=== PATIENT | male | born 1965 | race Caucasian/White ===

== ENCOUNTER 2020-05-04 14:51 | Inpatient (IN) | payer BC ==
[~2020-05-04] VITALS: Ht 175.3 cm; Wt 85.5 kg
[2020-05-04] MEDS ORDERED: ASPIRIN 325 MG TABLET PO ONE (15:15)
--- NOTE | 2020-05-04 15:18 | PHYS DOC ---
Past Medical History Past Medical History: High Cholesterol, Hypertension Past Surgical History: Other Additional Past Surgical Histo: hernia Smoking Status: Never Smoker Alcohol Use: Occasionally General Adult EDM: Chief Complaint: CHEST PAIN HPI: HPI: Patient is a 54 year old male who presents with 2 days of intermittent but more episodes than usual of increased shortness of air, chest tightness and sharp pains that go into the left chest. They radiate to the back. He states when he is up and moving it makes it worse. He states he will get lightheaded at the same time. He states that he has a little bit of a cough and some sinus drainage also. States he works at the [employer]. He states that his mom and dad have both had heart disease, heart attacks and mom has A. fib. Patient has a history of hypercholesteremia and hypertension. He has not taken any aspirin. He states that he just had a physical and he supposed to go on for a stress test but it is not scheduled yet. States nothing makes his pain better. He states at times he will just be sitting or he be standing walking around at work and will begin to get some nausea, increase short of air, chest tightness and sharp pains through to the back and lightheaded and then feels as if his heart skips a beat. Review of Systems: Review of Systems: Constitutional: Denies fever or chills. [] Eyes: Denies change in visual acuity. [] HENT: Denies nasal congestion or sore throat. [] Respiratory: + cough or +shortness of breath. [] Cardiovascular: + chest pain or denies edema. + Heart skips a beat [] GI: Denies abdominal pain. + nausea, denies vomiting, bloody stools or diarrhea. [] : Denies dysuria. [] Musculoskeletal: + Mid back pain or denies joint pain. [] Integument: Denies rash. [] Neurologic: + Lightheadedness. Denies headache, focal weakness or sensory changes. [] Endocrine: Denies polyuria or polydipsia. [] Lymphatic: Denies swollen glands. [] Psychiatric: Denies depression or anxiety. [] Heart Score: HEART Score for Chest Pain: HEART Score for Chest Pain Response (Comments) Value History Moderately Suspicious 1 ECG Nonspecific Repolarizatio 1 Age >45 - < 65 1 Risk Factors >3 Risk Factors or Hx CAD 2 Troponin < Normal Limit 0 Total 5 Risk Factors: Risk Factors: DM, Current or recent (<one month) smoker, HTN, HLP, family history of CAD, obesity. Risk Scores: Score 0 - 3: 2.5% MACE over next 6 weeks - Discharge Home Score 4 - 6: 20.3% MACE over next 6 weeks - Admit for Clinical Observation Score 7 - 10: 72.7% MACE over next 6 weeks - Early Invasive Strategies Physical Exam: PE: Constitutional: Well developed, well nourished, no acute distress, non-toxic appearance. [] HENT: Normocephalic, atraumatic, bilateral external ears normal, oropharynx moist, no oral exudates, nose normal. [] Eyes: PERRLA, EOMI, conjunctiva normal, no discharge. [] Neck: Normal range of motion, no tenderness, supple, no stridor. [] Cardiovascular:Heart rate regular rhythm, no murmur [] Lungs & Thorax: Bilateral breath sounds clear to auscultation [] Abdomen: Bowel sounds normal, soft, no tenderness, no masses, no pulsatile masses. [] Skin: Warm, dry, no erythema, no rash. [] Back: No tenderness, no CVA tenderness. [] Extremities: No tenderness, no cyanosis, no clubbing, ROM intact, no edema. [] Neurologic: Alert and oriented X 3, normal motor function, normal sensory function, no focal deficits noted. [] Psychologic: Affect normal, judgement normal, mood normal. Normal physical exam [] Current Patient Data: Vital Signs: Vital Signs Date Time Temp Pulse Resp B/P (MAP) Pulse Ox O2 Delivery O2 Flow Rate FiO2 05/04/20 14:55 98.2 97 16 163/97 (119) 100 Room Air 98.2 EKG: EK and read by Dr Crespo as Sinus Rhythm and no STEMI Radiology/Procedures: Radiology/Procedures: [] Impression: [facility] [address] [place] [address] IMAGING REPORT Signed PATIENT: SARANYA MELO ACCOUNT: [id number] : 1965 LOCATION: ER AGE: 54 SEX: M EXAM STATUS: PRE ER ORD. PHYSICIAN: KATHY PAZ APRN REASON: light headedness x few days PROCEDURE: CT HEAD WO CONTRAST Examination: CT HEAD WO CONTRAST History: Reason: light headedness x few days Comparison/Correlation: None Findings: Axial images of the head were obtained without contrast. Ventricles are normal size. No intracranial hemorrhage, midline shift, or mass effect. Atrophy is present. Bony structures are unremarkable. Left sphenoid sinus mucous retention cyst. Impression: No suspicious process. PQRS Compliance Statement: One or more of the following individualized dose reduction techniques were utilized for this examination: 1. Automated exposure control 2. Adjustment of the mA and/or kV according to patient size 3. Use of iterative reconstruction technique Electronically signed by: Sunil Somers MD (05/04/2020 3:32 PM) [id number] DICTATED and SIGNED BY: SUNIL SOMERS MD DATE: 05/04/201531 [facility] [address] [place] [address] IMAGING REPORT Signed PATIENT: SARANYA MELO ACCOUNT: [id number] : 1965 LOCATION: ER AGE: 54 SEX: M EXAM STATUS: PRE ER ORD. PHYSICIAN: KATHY PAZ APRN REASON: chest pain, soa PROCEDURE: PORTABLE CHEST 1V Examination: PORTABLE CHEST 1V History: Reason: chest pain, soa / Spl. Instructions: / History: Comparison/Correlation: None Findings: Portable Chest X-ray Exam was obtained with the patient upright. Heart size is normal. Pulmonary vasculature is normal. No infiltrate or effusion. No pneumothorax. Bony structures are unremarkable. Impression: No active disease. Electronically signed by: Sunil Somers MD (05/04/2020 3:35 PM) [id number] DICTATED and SIGNED BY: SUNIL SOMERS MD DATE: 05/04/201534 Course & Med Decision Making: Course & Med Decision Making Pertinent Labs and Imaging studies reviewed. (See chart for details) COVID-19 CRITERIA: The patient was evaluated during the global COVID-19 pandemic, and that diagnosis was suspected/considered upon their initial presentation. Their evaluation, treatment and testing was consistent with current guidelines for patients who present with complaints or symptoms that may be related to COVID-19. See HPI. Alert and oriented x4. Ambulatory steady gait. No extremity edema. Lungs are clear to auscultation all lobes. Speaks in full sentences. Skin pink warm and dry. Patient denies smoking, vomiting, abdominal pain, headache, vision changes, numbness or tingling, focal weakness. Blood work is unremarkable except for his sodium is 127. I have ordered a liter of fluids. The nitroglycerin he had 1 nitro and it took his chest pain away. Patient is willing to cover test but states he does not want a Covid test if they can do a stress test on him and then do it again tomorrow as he states that " I want the fast Covid test. Had a friend that went to [place] and they got the fast Covid test." Patient is told that we only do the rapid Covid test before a procedure at this facility. He also asked me if " can I get the stress test d one tomorrow and if I can I am going to leave." He states that his doctor had put in an order to have a stress test done at [facility] months ago but he never did it because it would take 4 hours and he does not " have time for that and does not deal with [facility]". Patient is educated that if he left he would have to sign out AGAINST MEDICAL ADVICE because our advice is for him to be admitted to be observed overnight especially since he is high risk and runs the risk of or stability if he left. Patient " laughs" and states " I am not going to , these are the same pains I have been getting for some time." Patient states that he has things to do like "mow the grass." Patient states that he can " leave and come back tomorrow". Once again told him he would have to sign out AGAINST MEDICAL ADVICE. Also told the patient that he would have to go back through the ER visit again and the patient states " that is okay I have insurance, I am not paying for it." I have called Dr. Elaine for admission. [] Ladonna Disclaimer: Ladonna Disclaimer: This electronic medical record was generated, in whole or in part, using a voice recognition dictation system. COVID-19 Patient Risks: Age 65 or older: No Sign of co-morbidity: Yes Exp to person + for COVID: No Exp to PUI: No Travel from affected area: No Lower respiratory symptoms: Yes Fever: No Other: Yes (NASAL CONGESTION, SOA) PPE Use: Full PPE with N95 mask or PAPR: Yes Departure Departure Impression: Primary Impression: Chest pain Qualified Codes: R07.9 - Chest pain, unspecified Disposition: 09 ADMITTED INPT THIS HOSP Admitting Physician: JALEN Condition: STABLE KATHY PAZ CUSHION ASSEMBLER May 04, 2020 15:18
[2020-05-04 15:24] LABS: BASO % 1 % (0-3); EOS # 0.1 x10^3/uL (0.0-0.7); EOS % 1 % (0-3); HEMATOCRIT 41.7 % (39.0-53.0); HEMOGLOBIN 14.9 g/dL (13.0-17.5); LYMPH % 29 % (24-48); MEAN CORPUSCULAR HEMOGLOBIN 34 pg (25-35); MEAN CORPUSCULAR HGB CONC 36 g/dL (31-37); MEAN CORPUSCULAR VOLUME 95 fL (79-100); MONO # 0.9 x10^3/uL (0.0-1.1); MONO % 14 % (0-9); NEUT # 3.8 x10^3/uL (1.8-7.7); NEUT % 55 % (31-73); PLATELET COUNT 157 x10^3/uL (140-400); RED CELL DISTRIBUTION WIDTH 13.4 % (11.5-14.5); WHITE BLOOD COUNT 6.8 x10^3/uL (4.0-11.0)
[2020-05-04] MEDS ORDERED: NITROGLYCERIN SUBLINGUAL 0.4 MG BOTTLE OF 25. SL PRN (15:30)
[2020-05-04 15:31] LABS: PROTHROMBIN TIME PATIENT 12.7 SEC (11.7-14.0)
--- NOTE | 2020-05-04 15:35 | RAD ---
Examination: CT HEAD WO CONTRAST History: Reason: light headedness x few days Comparison/Correlation: None Findings: Axial images of the head were obtained without contrast. Ventricles are normal size. No intracranial hemorrhage, midline shift, or mass effect. Atrophy is present. Bony structures are unremarkable. Left sphenoid sinus mucous retention cyst. Impression: No suspicious process. PQRS Compliance Statement: One or more of the following individualized dose reduction techniques were utilized for this examination: 1. Automated exposure control 2. Adjustment of the mA and/or kV according to patient size 3. Use of iterative reconstruction technique Electronically signed by: Sunil Gillis MD (05/04/2020 3:32 PM) [id number]
[2020-05-04 15:39] LABS: CALCIUM 8.8 mg/dL (8.5-10.1); CREATININE 0.7 mg/dL (0.7-1.3); POTASSIUM 4.5 mmol/L (3.5-5.1)
--- NOTE | 2020-05-04 15:39 | RAD ---
Examination: PORTABLE CHEST 1V History: Reason: chest pain, soa / Spl. Instructions: / History: Comparison/Correlation: None Findings: Portable Chest X-ray Exam was obtained with the patient upright. Heart size is normal. Pulmonary vasculature is normal. No infiltrate or effusion. No pneumothorax. Bony structures are unremarkable. Impression: No active disease. Electronically signed by: Sunil Gillis MD (05/04/2020 3:35 PM) [id number]
[2020-05-04 15:44] LABS: ALBUMIN 4.3 g/dL (3.4-5.0); ALBUMIN/GLOBULIN RATIO 1.5 (1.0-1.7); TOTAL BILIRUBIN 0.6 mg/dL (0.2-1.0); TOTAL PROTEIN 7.2 g/dL (6.4-8.2)
[2020-05-04] MEDS ORDERED: IV NORMAL SALINE 1000ML BAG 1,000 ML IV ONE (15:45)
[2020-05-04 16:11] LABS: BILIRUBIN,URINE NEGATIVE (NEG); CLARITY,URINE CLEAR; NITRITE,URINE NEGATIVE (NEG); PROTEIN,URINE NEGATIVE (NEG-TRACE); UROBILINOGEN,URINE 0.2 mg/dL (0.2 mg/dL)
[2020-05-04 16:16] LABS: BARBITURATES NEG (NEG); BENZODIAZEPINES NEG (NEG); CANNABINOIDS NEG (NEG); COCAINE NEG (NEG); METHADONE NEG (NEG); OPIATES NEG (NEG); PHENCYCLIDINE NEG (NEG)
[2020-05-04 16:19] LABS: COLOR,URINE STRAW
[2020-05-04 16:21] LABS: BACTERIA,URINE 0 /HPF (0-FEW); RBC,URINE 0 /HPF (0-2); WBC,URINE 0 /HPF (0-4)
[2020-05-04 16:28] LABS: AMPHETAMINE/METHAMPHETAMINE NEG (NEG)
[2020-05-04 16:53] LABS: CHOLESTEROL/HDL RATIO 3.3
[2020-05-04] MEDS ORDERED: MAGNESIUM HYDROXIDE 2,400 MG/30 ML ORAL.SUSP. PO PRN (17:00)
[2020-05-04] MEDS ORDERED: IBUPROFEN 400 MG TABLET. PO PRN (17:00)
[2020-05-04] MEDS ORDERED: traMADol 50 MG TABLET PO PRN (17:00)
[2020-05-04] MEDS ORDERED: ONDANSETRON PF 4 MG/2 ML VIAL. IVP PRN (17:00)
[2020-05-04] MEDS ORDERED: ZOLPIDEM 5 MG TABLET. PO PRN (17:00)
[2020-05-04] MEDS ORDERED: ACETAMINOPHEN 325 MG TABLET. PO PRN (17:00)
[2020-05-04] MEDS ORDERED: MAG HYDROX/ALUMINUM HYD/SIMETH 30 ML ORAL.SUSP PO PRN (17:00)
[2020-05-04] MEDS ORDERED: hydrOXYzine 25 MG TABLET PO PRN (17:00)
[2020-05-04] MEDS ORDERED: MORPHINE SULFATE 2 MG/ML VIAL. IV PRN (17:00)
--- NOTE | 2020-05-04 17:11 | PDOC1 ---
History and Physical Date of Admission Date of Admission DATE: 05/04/20 TIME: 17:01 Identification/Chief Complaint Chief Complaint Chest pain Source Source: Patient History of Present Illness History of Present Illness Patient is a 51-year-old male with past medical history hypertension, hyperlipidemia, presents to the ED with complaint of intermittent left-sided chest pain for the past 2 days. Patient notes a longstanding history of intermittent chest pain over the past 2-3 years. He reports left-sided chest tightness. His symptoms have worsened over the past 2 days to include diaphoresis. Patient states he has previously received a stress test with normal results. He has a strong family history of coronary artery disease, father with CABG and mother with A. fib. Initial troponin <0.017 and chest x- ray unremarkable. Will admit patient for further evaluation with stress echo in the morning and cardiology consult. Past Medical History Past Medical History Hypertension, hyperlipidemia Past Surgical History Past Surgical History Hiatal hernia repair Family History Family History CABG, CAD, A. fib Social History Smoke: No ALCOHOL: none Drugs: None Current Problem List Problem List Problems Medical Problems: (1) Chest pain Status: Acute Current Medications Current Medications Current Medications Aspirin (Shabbir Aspirin) 325 mg 1X ONCE PO Last administered on 05/04/20at 15:15; Start 05/04/20 at 15:15; Stop 05/04/20 at 15:16; Status DC Nitroglycerin (Nitrostat) 0.4 mg PRN Q5MIN PRN SL CHEST PAIN Last administered on 05/04/20at 15:36; Start 05/04/20 at 15:30 Sodium Chloride 1,000 ml @ 1,000 mls/hr 1X ONCE IV Last administered on 05/04/20at 15:59; Start 05/04/20 at 15:45; Stop 05/04/20 at 16:44; Status DC Allergies Allergies: Coded Allergies: No Known Drug Allergies (Unverified , 05/04/20) ROS Review of System GENERAL: Diaphoresis. No history of weight change, weakness or fevers. SKIN: No bruising, hair changes or rashes. EYES: No blurred, double or loss of vision. NOSE AND THROAT: No history of nosebleeds, hoarseness or sore throat. HEART: Chest pain. Denies palpitations. LUNGS: Denies cough, hemoptysis, wheezing or shortness of breath. GASTROINTESTINAL: Denies nausea, vomiting, abdominal pain. GENITOURINARY: Denies dysuria, frequency, urgency, hematuria. NEUROLOGIC: Denies history of numbness, tingling, tremor or weakness. PSYCHIATRIC: Denies anxiety, denies depression. ENDOCRINE: No history of heat or cold intolerance, polyuria or polydipsia. EXTREMITIES: Denies muscle weakness, joint pain, pain on walking or stiffness. Physical Exam Physical Exam General: Alert, Oriented X3, Cooperative, No acute distress HEENT: PERRLA, EOMI Lungs: Clear to auscultation, Normal air movement Heart: RRR, no murmurs Cardiovascular: S1, S2 Abdomen: Normal bowel sounds, Soft, No tenderness Extremities: No clubbing, No cyanosis Skin: No rashes, No significant lesion Neuro: Normal speech, Normal tone, Sensation intact Psych/Mental Status: Mental status NL, Mood NL Vitals Vitals Vital Signs Date Time Temp Pulse Resp B/P (MAP) Pulse Ox O2 Delivery O2 Flow Rate FiO2 05/04/20 16:05 98 15 129/90 (103) 99 Room Air 05/04/20 14:55 98.2 98.2 Labs Labs Laboratory Tests Test 05/04/20 15:14 05/04/20 15:45 White Blood Count 6.8 x10^3/uL (4.0-11.0) Red Blood Count 4.40 x10^6/uL (4.30-5.70) Hemoglobin 14.9 g/dL (13.0-17.5) Hematocrit 41.7 % (39.0-53.0) Mean Corpuscular Volume 95 fL (79-100) Mean Corpuscular Hemoglobin 34 pg (25-35) Mean Corpuscular Hemoglobin Concent 36 g/dL (31-37) Red Cell Distribution Width 13.4 % (11.5-14.5) Platelet Count 157 x10^3/uL (140-400) Neutrophils (%) (Auto) 55 % (31-73) Lymphocytes (%) (Auto) 29 % (24-48) Monocytes (%) (Auto) 14 % (0-9) Eosinophils (%) (Auto) 1 % (0-3) Basophils (%) (Auto) 1 % (0-3) Neutrophils # (Auto) 3.8 x10^3/uL (1.8-7.7) Lymphocytes # (Auto) 2.0 x10^3/uL (1.0-4.8) Monocytes # (Auto) 0.9 x10^3/uL (0.0-1.1) Eosinophils # (Auto) 0.1 x10^3/uL (0.0-0.7) Basophils # (Auto) 0.0 x10^3/uL (0.0-0.2) Prothrombin Time 12.7 SEC (11.7-14.0) Prothromb Time International Ratio 1.0 (0.8-1.1) D-Dimer (Cris) < 0.27 ug/mlFEU Sodium Level 128 mmol/L (136-145) Potassium Level 4.5 mmol/L (3.5-5.1) Chloride Level 92 mmol/L (98-107) Carbon Dioxide Level 30 mmol/L (21-32) Anion Gap 6 (6-14) Blood Urea Nitrogen 7 mg/dL (8-26) Creatinine 0.7 mg/dL (0.7-1.3) Estimated GFR (Cockcroft-Gault) 118.0 BUN/Creatinine Ratio 10 (6-20) Glucose Level 103 mg/dL (70-99) Calcium Level 8.8 mg/dL (8.5-10.1) Total Bilirubin 0.6 mg/dL (0.2-1.0) Aspartate Amino Transf (AST/SGOT) 41 U/L (15-37) Alanine Aminotransferase (ALT/SGPT) 61 U/L (16-63) Alkaline Phosphatase 57 U/L (46-116) Troponin I Quantitative < 0.017 ng/mL (0.000-0.055) [id number]-[id number]-Type Natriuretic Peptide 77 pg/mL (0-124) Total Protein 7.2 g/dL (6.4-8.2) Albumin 4.3 g/dL (3.4-5.0) Albumin/Globulin Ratio 1.5 (1.0-1.7) Triglycerides Level 88 mg/dL (0-150) Cholesterol Level 241 mg/dL (0-200) LDL Cholesterol, Calculated 151 mg/dL (0-100) VLDL Cholesterol, Calculated 18 mg/dL (0-40) Non-HDL Cholesterol Calculated 169 mg/dL (0-129) HDL Cholesterol 72 mg/dL (40-60) Cholesterol/HDL Ratio 3.3 Lipase 231 U/L (73-393) Urine Collection Type Unknown Urine Color Straw Urine Clarity Clear Urine pH 6.0 (<5.0-8.0) Urine Specific Portis <=1.005 (1.000-1.030) Urine Protein Negative mg/dL (NEG-TRACE) Urine Glucose (UA) Negative mg/dL (NEG) Urine Ketones (Stick) Negative mg/dL (NEG) Urine Blood Negative (NEG) Urine Nitrite Negative (NEG) Urine Bilirubin Negative (NEG) Urine Urobilinogen Dipstick 0.2 mg/dL (0.2 mg/dL) Urine Leukocyte Esterase Negative (NEG) Urine RBC 0 /HPF (0-2) Urine WBC 0 /HPF (0-4) Urine Squamous Epithelial Cells None /LPF Urine Bacteria 0 /HPF (0-FEW) Urine Opiates Screen Neg (NEG) Urine Methadone Screen Neg (NEG) Urine Barbiturates Neg (NEG) Urine Phencyclidine Screen Neg (NEG) Urine Amphetamine/Methamphetamine Neg (NEG) Urine Benzodiazepines Screen Neg (NEG) Urine Cocaine Screen Neg (NEG) Urine Cannabinoids Screen Neg (NEG) Urine Ethyl Alcohol Pos (NEG) Laboratory Tests Test 05/04/20 15:14 05/04/20 15:45 White Blood Count 6.8 x10^3/uL (4.0-11.0) Red Blood Count 4.40 x10^6/uL (4.30-5.70) Hemoglobin 14.9 g/dL (13.0-17.5) Hematocrit 41.7 % (39.0-53.0) Mean Corpuscular Volume 95 fL (79-100) Mean Corpuscular Hemoglobin 34 pg (25-35) Mean Corpuscular Hemoglobin Concent 36 g/dL (31-37) Red Cell Distribution Width 13.4 % (11.5-14.5) Platelet Count 157 x10^3/uL (140-400) Neutrophils (%) (Auto) 55 % (31-73) Lymphocytes (%) (Auto) 29 % (24-48) Monocytes (%) (Auto) 14 % (0-9) Eosinophils (%) (Auto) 1 % (0-3) Basophils (%) (Auto) 1 % (0-3) Neutrophils # (Auto) 3.8 x10^3/uL (1.8-7.7) Lymphocytes # (Auto) 2.0 x10^3/uL (1.0-4.8) Monocytes # (Auto) 0.9 x10^3/uL (0.0-1.1) Eosinophils # (Auto) 0.1 x10^3/uL (0.0-0.7) Basophils # (Auto) 0.0 x10^3/uL (0.0-0.2) Prothrombin Time 12.7 SEC (11.7-14.0) Prothromb Time International Ratio 1.0 (0.8-1.1) D-Dimer (Cris) < 0.27 ug/mlFEU Sodium Level 128 mmol/L (136-145) Potassium Level 4.5 mmol/L (3.5-5.1) Chloride Level 92 mmol/L (98-107) Carbon Dioxide Level 30 mmol/L (21-32) Anion Gap 6 (6-14) Blood Urea Nitrogen 7 mg/dL (8-26) Creatinine 0.7 mg/dL (0.7-1.3) Estimated GFR (Cockcroft-Gault) 118.0 BUN/Creatinine Ratio 10 (6-20) Glucose Level 103 mg/dL (70-99) Calcium Level 8.8 mg/dL (8.5-10.1) Total Bilirubin 0.6 mg/dL (0.2-1.0) Aspartate Amino Transf (AST/SGOT) 41 U/L (15-37) Alanine Aminotransferase (ALT/SGPT) 61 U/L (16-63) Alkaline Phosphatase 57 U/L (46-116) Troponin I Quantitative < 0.017 ng/mL (0.000-0.055) KI-[id number]-G-Type Natriuretic Peptide 77 pg/mL (0-124) Total Protein 7.2 g/dL (6.4-8.2) Albumin 4.3 g/dL (3.4-5.0) Albumin/Globulin Ratio 1.5 (1.0-1.7) Triglycerides Level 88 mg/dL (0-150) Cholesterol Level 241 mg/dL (0-200) LDL Cholesterol, Calculated 151 mg/dL (0-100) VLDL Cholesterol, Calculated 18 mg/dL (0-40) Non-HDL Cholesterol Calculated 169 mg/dL (0-129) HDL Cholesterol 72 mg/dL (40-60) Cholesterol/HDL Ratio 3.3 Lipase 231 U/L (73-393) Urine Collection Type Unknown Urine Color Straw Urine Clarity Clear Urine pH 6.0 (<5.0-8.0) Urine Specific Portis <=1.005 (1.000-1.030) Urine Protein Negative mg/dL (NEG-TRACE) Urine Glucose (UA) Negative mg/dL (NEG) Urine Ketones (Stick) Negative mg/dL (NEG) Urine Blood Negative (NEG) Urine Nitrite Negative (NEG) Urine Bilirubin Negative (NEG) Urine Urobilinogen Dipstick 0.2 mg/dL (0.2 mg/dL) Urine Leukocyte Esterase Negative (NEG) Urine RBC 0 /HPF (0-2) Urine WBC 0 /HPF (0-4) Urine Squamous Epithelial Cells None /LPF Urine Bacteria 0 /HPF (0-FEW) Urine Opiates Screen Neg (NEG) Urine Methadone Screen Neg (NEG) Urine Barbiturates Neg (NEG) Urine Phencyclidine Screen Neg (NEG) Urine Amphetamine/Methamphetamine Neg (NEG) Urine Benzodiazepines Screen Neg (NEG) Urine Cocaine Screen Neg (NEG) Urine Cannabinoids Screen Neg (NEG) Urine Ethyl Alcohol Pos (NEG) Images Images Examination: PORTABLE CHEST 1V History: Reason: chest pain, soa / Spl. Instructions: / History: Comparison/Correlation: None Findings: Portable Chest X-ray Exam was obtained with the patient upright. Heart size is normal. Pulmonary vasculature is normal. No infiltrate or effusion. No pneumothorax. Bony structures are unremarkable. Impression: No active disease. VTE Prophylaxis Ordered VTE Prophylaxis Devices: Yes VTE Pharmacological Prophylaxi: No Assessment/Plan Assessment/Plan Unstable angina Hyponatremia Hypertension Hyperlipidemia Plan: Initial troponin <0.017, will obtain repeat troponins Heart pathway score 4, 12-65% chance of 30-day major adverse cardiac event Consults cardiology We will obtain stress echo in the morning Rapid Covid pending for stress test Lipid panel pending We will reconcile home medications FEN - Cardiac diet PPX - SCDs FULL CODE Dispo - observation for above Justifications for Admission Other Justification Unstable angina, hyponatremia JEY AREVALO MD May 04, 2020 17:11
[2020-05-04 19:05] VITALS: BP 121/85
[2020-05-04] MEDS ORDERED: LORA-434 PO (20:42)
[2020-05-04] MEDS ORDERED: FAMO10TA26 PO (20:42)
[2020-05-04] MEDS ORDERED: METO50TA4 PO (20:42)
[2020-05-04] MEDS ORDERED: LISI-334 PO (20:42)
[2020-05-04] MEDS ORDERED: FAMOTIDINE 20 MG TABLET. PO SCH (21:00)
[2020-05-04] MEDS: METOPROLOL SUCC 24HR ER 50 MG TAB.ER.24H. PO SCH (21:10)
[2020-05-04 22:59] VITALS: BP 117/73
[2020-05-05 02:58] VITALS: BP 114/67
[2020-05-05 06:04] LABS: CALCIUM 8.6 mg/dL (8.5-10.1); CREATININE 0.7 mg/dL (0.7-1.3); POTASSIUM 4.3 mmol/L (3.5-5.1)
[2020-05-05 07:00] VITALS: BP_SYST 114; BP_SYST 131; BP_DIAS 67; BP_DIAS 82
[2020-05-05] MEDS ORDERED: LISINOPRIL 20 MG TABLET PO SCH (09:00)
--- NOTE | 2020-05-05 10:05 | PDOC2 ---
SANDRANICOLE BERMUDEZ HORTENCIA 05/05/20 1005: CARDIAC CONSULT DATE OF CONSULT Date of Consult DATE: 05/05/20 TIME: 10:01 REASON FOR CONSULT Reason for Consult: Chest pain REFERRING PHYSICIAN Referring Physician: Neema Brown APRN SOURCE Source: Chart review, Patient HISTORY OF PRESENT ILLNESS HISTORY OF PRESENT ILLNESS This is a 54 yo male who presented secondary to chest pain. Patient reports experiencing intermittent chest pain for the last several months. Has been increasing in the last 2-3 days. Located in the central to right chest. Describes as aching. Radiated through to the back. Sometimes, feels lightheaded with the pain and feels like his heart is skipping a beat although thinks this could be anxiety related. Denies any associated diaphoresis or shortness of breath. Occasionally feels nauseated. Reports having heart cath in 2000 that was clean. No recent cardiac workup. PAST MEDICAL HISTORY Cardiovascular: HTN, Hyperlipidemia GI: GERD Musculoskeletal: Osteoarthritis PAST SURGICAL HISTORY Past Surgical History: Tonsillectomy FAMILY HISTORY Family History: Coronary Artery Disease (mother and father ), Heart Disease, Hypertension, Other (AFIB ) SOCIAL HISTORY Smoke: No ALCOHOL: occassional Drugs: None Lives: with Family CURRENT MEDICATIONS CURRENT MEDICATIONS Current Medications Medications (Trade) Dose Ordered Sig/Carly Route PRN Reason Start Time Stop Time Status Last Admin Dose Admin Aspirin (Shabbir Aspirin) 325 mg 1X ONCE PO 05/04/20 15:15 05/04/20 15:16 DC 05/04/20 15:15 Nitroglycerin (Nitrostat) 0.4 mg PRN Q5MIN PRN SL CHEST PAIN 05/04/20 15:30 05/04/20 15:36 Sodium Chloride 1,000 ml @ 1,000 mls/hr 1X ONCE IV 05/04/20 15:45 05/04/20 16:44 DC 05/04/20 15:59 Lorazepam (Ativan) 1 mg HS PO 05/04/20 21:00 05/04/20 21:09 Metoprolol Succinate (Toprol Xl) 50 mg BID PO 05/04/20 21:00 05/04/20 21:10 Famotidine (Pepcid) 20 mg QHS PO 05/04/20 21:00 05/04/20 21:09 ALLERGIES ALLERGIES: Coded Allergies: No Known Drug Allergies (Unverified , 05/04/20) ROS Review of System 14 point ROS conducted with pertinent positives noted above in HPI PHYSICAL EXAM General: Alert, Oriented X3, Cooperative, No acute distress HEENT: Atraumatic, Mucous membr. moist/pink Lungs: Clear to auscultation Heart: Regular rate Abdomen: Soft, No tenderness Extremities: No edema, Normal pulses Skin: No breakdown Neuro: Normal speech, Sensation intact Psych/Mental Status: Mood NL MUSCULOSKELETAL: No joint tenderness, Osteoarthritic changes both hands VITALS/I&O VITALS/I&O: Vital Signs Date Time Temp Pulse Resp B/P (MAP) Pulse Ox O2 Delivery O2 Flow Rate FiO2 05/05/20 07:00 97.6 79 19 131/82 (98) 98 Room Air 97.6 I & O 05/04/20 05/04/20 05/05/20 15:00 23:00 07:00 Intake Total 400 ml 0 ml Balance 400 ml 0 ml LABS Lab: Laboratory Tests Test 05/04/20 15:14 05/04/20 15:45 05/04/20 17:05 05/04/20 19:00 White Blood Count 6.8 x10^3/uL (4.0-11.0) Red Blood Count 4.40 x10^6/uL (4.30-5.70) Hemoglobin 14.9 g/dL (13.0-17.5) Hematocrit 41.7 % (39.0-53.0) Mean Corpuscular Volume 95 fL (79-100) Mean Corpuscular Hemoglobin 34 pg (25-35) Mean Corpuscular Hemoglobin Concent 36 g/dL (31-37) Red Cell Distribution Width 13.4 % (11.5-14.5) Platelet Count 157 x10^3/uL (140-400) Neutrophils (%) (Auto) 55 % (31-73) Lymphocytes (%) (Auto) 29 % (24-48) Monocytes (%) (Auto) 14 % (0-9) H Eosinophils (%) (Auto) 1 % (0-3) Basophils (%) (Auto) 1 % (0-3) Neutrophils # (Auto) 3.8 x10^3/uL (1.8-7.7) Lymphocytes # (Auto) 2.0 x10^3/uL (1.0-4.8) Monocytes # (Auto) 0.9 x10^3/uL (0.0-1.1) Eosinophils # (Auto) 0.1 x10^3/uL (0.0-0.7) Basophils # (Auto) 0.0 x10^3/uL (0.0-0.2) Prothrombin Time 12.7 SEC (11.7-14.0) Prothrombin Time INR 1.0 (0.8-1.1) D-Dimer (Cris) < 0.27 ug/mlFEU Sodium Level 128 mmol/L (136-145) L Potassium Level 4.5 mmol/L (3.5-5.1) Chloride Level 92 mmol/L (98-107) L Carbon Dioxide Level 30 mmol/L (21-32) Anion Gap 6 (6-14) Blood Urea Nitrogen 7 mg/dL (8-26) L Creatinine 0.7 mg/dL (0.7-1.3) Estimated GFR (Cockcroft-Gault) 118.0 BUN/Creatinine Ratio 10 (6-20) Glucose Level 103 mg/dL (70-99) H Calcium Level 8.8 mg/dL (8.5-10.1) Total Bilirubin 0.6 mg/dL (0.2-1.0) Aspartate Amino Transferase (AST) 41 U/L (15-37) H Alanine Aminotransferase (ALT) 61 U/L (16-63) Alkaline Phosphatase 57 U/L (46-116) Troponin I Quantitative < 0.017 ng/mL (0.000-0.055) < 0.017 ng/mL (0.000-0.055) ND-Lip-V-Type Natriuretic Peptide 77 pg/mL (0-124) Total Protein 7.2 g/dL (6.4-8.2) Albumin 4.3 g/dL (3.4-5.0) Albumin/Globulin Ratio 1.5 (1.0-1.7) Triglycerides Level 88 mg/dL (0-150) Cholesterol Level 241 mg/dL (0-200) H LDL Cholesterol, Calculated 151 mg/dL (0-100) H VLDL Cholesterol, Calculated 18 mg/dL (0-40) Non-HDL Cholesterol Calculated 169 mg/dL (0-129) H HDL Cholesterol 72 mg/dL (40-60) H Cholesterol/HDL Ratio 3.3 Lipase 231 U/L (73-393) Urine Collection Type Unknown Urine Color Straw Urine Clarity Clear Urine pH 6.0 (<5.0-8.0) Urine Specific [place] <=1.005 (1.000-1.030) Urine Protein Negative mg/dL (NEG-TRACE) Urine Glucose (UA) Negative mg/dL (NEG) Urine Ketones (Stick) Negative mg/dL (NEG) Urine Blood Negative (NEG) Urine Nitrite Negative (NEG) Urine Bilirubin Negative (NEG) Urine Urobilinogen Dipstick 0.2 mg/dL (0.2 mg/dL) Urine Leukocyte Esterase Negative (NEG) Urine RBC 0 /HPF (0-2) Urine WBC 0 /HPF (0-4) Urine Squamous Epithelial Cells None /LPF Urine Bacteria 0 /HPF (0-FEW) Urine Opiates Screen Neg (NEG) Urine Methadone Screen Neg (NEG) Urine Barbiturates Neg (NEG) Urine Phencyclidine Screen Neg (NEG) Urine Amphetamine/Methamphetamine Neg (NEG) Urine Benzodiazepines Screen Neg (NEG) Urine Cocaine Screen Neg (NEG) Urine Cannabinoids Screen Neg (NEG) Urine Ethyl Alcohol Pos (NEG) SARS-CoV-2 Antigen (Rapid) Negative (NEGATIVE) Test 05/04/20 21:01 05/05/20 05:17 Troponin I Quantitative < 0.017 ng/mL (0.000-0.055) Sodium Level 135 mmol/L (136-145) L Potassium Level 4.3 mmol/L (3.5-5.1) Chloride Level 100 mmol/L (98-107) Carbon Dioxide Level 26 mmol/L (21-32) Anion Gap 9 (6-14) Blood Urea Nitrogen 10 mg/dL (8-26) Creatinine 0.7 mg/dL (0.7-1.3) Estimated GFR (Cockcroft-Gault) 118.0 Glucose Level 88 mg/dL (70-99) Calcium Level 8.6 mg/dL (8.5-10.1) Laboratory Tests 05/04/20 15:14 Laboratory Tests 05/04/20 15:14 05/05/20 05:17 ASSESSMENT/PLAN ASSESSMENT/PLAN 1. Chest pain, mixed features; AMI ruled out 2. Hypertension; controlled 3. Hyperlipidemia; LDL 151 4. GERD 5. Anxiety Recommendations Continue metoprolol Add ASA, statin Echo to assess LV systolic function Ischemic evaluation with MPI underway Further pending above. MARKEL HUBBARD MD 05/05/20 1559: CARDIAC CONSULT ASSESSMENT/PLAN ASSESSMENT/PLAN Patient seen and examined. Agree with CUSTOMS COMPLIANCE SPECIALIST's assessment and plan. Chest pain with atypical features. Myocardial infarction has been ruled out. 2D echo showed normal LV systolic function. Lexiscan nuclear stress test did not show any significant ischemia. Okay for DC from cardiac standpoint. Thank you for your consultation NICOLE FLORES APRN May 05, 2020 10:05 MARKEL HUBBARD MD May 05, 2020 15:59
[2020-05-05 10:39] VITALS: BP 145/92
[2020-05-05] MEDS ORDERED: REGADENOSON 0.4 MG/5 ML DISP.SYRIN. IV ONE (11:30)
--- NOTE | 2020-05-05 13:50 | PDOC ---
[employer] PROGRESS NOTE Date of Service DOS: DATE: 05/05/20 TIME: 13:43 Chief Complaint Chief Complaint Unstable angina Hyponatremia Hypertension Hyperlipidemia Plan: Initial troponin <0.017, will obtain repeat troponins Heart pathway score 4, 12-65% chance of 30-day major adverse cardiac event Consults cardiology Pending MPI stress test Rapid Covid pending for stress test Lipid panel pending We will reconcile home medications FEN - Cardiac diet PPX - SCDs FULL CODE Dispo - observation for above History of Present Illness History of Present Illness 05/05/2020 No acute events overnight. Patient continues to have chest pain in the substernal region that has been unremitting. Patient continues to be anxious and tachycardic during our interview. Plan is for a nuclear med stress test today. It was discussed in depth with the patient that the patient does have a strong family history of cardiac disease and will need to have inpatient stress testing done and cardiac evaluation sooner than later. Patient's chart, labs, images were reviewed and discussed with RN 51-year-old male with past medical history hypertension, hyperlipidemia, presents to the ED with complaint of intermittent left-sided chest pain for the past 2 days. Patient notes a longstanding history of intermittent chest pain over the past 2-3 years. He reports left-sided chest tightness. His symptoms have worsened over the past 2 days to include diaphoresis. Patient states he has previously received a stress test with normal results. He has a strong family history of coronary artery disease, father with CABG and mother with A. fib. Initial troponin <0.017 and chest x-ray unremarkable. Will admit patient for further evaluation with stress echo in the morning and cardiology consult. Vitals/I&O Vitals/I&O: Vital Signs Date Time Temp Pulse Resp B/P (MAP) Pulse Ox O2 Delivery O2 Flow Rate FiO2 05/05/20 10:39 97.6 92 20 145/92 (109) 99 Room Air 97.6 I & O 05/04/20 05/04/20 05/05/20 15:00 23:00 07:00 Intake Total 400 ml 0 ml Balance 400 ml 0 ml Labs Labs: Laboratory Tests Test 05/04/20 15:14 05/04/20 15:45 05/04/20 17:05 05/04/20 19:00 White Blood Count 6.8 x10^3/uL (4.0-11.0) Red Blood Count 4.40 x10^6/uL (4.30-5.70) Hemoglobin 14.9 g/dL (13.0-17.5) Hematocrit 41.7 % (39.0-53.0) Mean Corpuscular Volume 95 fL (79-100) Mean Corpuscular Hemoglobin 34 pg (25-35) Mean Corpuscular Hemoglobin Concent 36 g/dL (31-37) Red Cell Distribution Width 13.4 % (11.5-14.5) Platelet Count 157 x10^3/uL (140-400) Neutrophils (%) (Auto) 55 % (31-73) Lymphocytes (%) (Auto) 29 % (24-48) Monocytes (%) (Auto) 14 % (0-9) Eosinophils (%) (Auto) 1 % (0-3) Basophils (%) (Auto) 1 % (0-3) Neutrophils # (Auto) 3.8 x10^3/uL (1.8-7.7) Lymphocytes # (Auto) 2.0 x10^3/uL (1.0-4.8) Monocytes # (Auto) 0.9 x10^3/uL (0.0-1.1) Eosinophils # (Auto) 0.1 x10^3/uL (0.0-0.7) Basophils # (Auto) 0.0 x10^3/uL (0.0-0.2) Prothrombin Time 12.7 SEC (11.7-14.0) Prothromb Time International Ratio 1.0 (0.8-1.1) D-Dimer (Cris) < 0.27 ug/mlFEU Sodium Level 128 mmol/L (136-145) Potassium Level 4.5 mmol/L (3.5-5.1) Chloride Level 92 mmol/L (98-107) Carbon Dioxide Level 30 mmol/L (21-32) Anion Gap 6 (6-14) Blood Urea Nitrogen 7 mg/dL (8-26) Creatinine 0.7 mg/dL (0.7-1.3) Estimated GFR (Cockcroft-Gault) 118.0 BUN/Creatinine Ratio 10 (6-20) Glucose Level 103 mg/dL (70-99) Calcium Level 8.8 mg/dL (8.5-10.1) Total Bilirubin 0.6 mg/dL (0.2-1.0) Aspartate Amino Transf (AST/SGOT) 41 U/L (15-37) Alanine Aminotransferase (ALT/SGPT) 61 U/L (16-63) Alkaline Phosphatase 57 U/L (46-116) Troponin I Quantitative < 0.017 ng/mL (0.000-0.055) < 0.017 ng/mL (0.000-0.055) AF-Xbl-N-Type Natriuretic Peptide 77 pg/mL (0-124) Total Protein 7.2 g/dL (6.4-8.2) Albumin 4.3 g/dL (3.4-5.0) Albumin/Globulin Ratio 1.5 (1.0-1.7) Triglycerides Level 88 mg/dL (0-150) Cholesterol Level 241 mg/dL (0-200) LDL Cholesterol, Calculated 151 mg/dL (0-100) VLDL Cholesterol, Calculated 18 mg/dL (0-40) Non-HDL Cholesterol Calculated 169 mg/dL (0-129) HDL Cholesterol 72 mg/dL (40-60) Cholesterol/HDL Ratio 3.3 Lipase 231 U/L (73-393) Urine Collection Type Unknown Urine Color Straw Urine Clarity Clear Urine pH 6.0 (<5.0-8.0) Urine Specific [place] <=1.005 (1.000-1.030) Urine Protein Negative mg/dL (NEG-TRACE) Urine Glucose (UA) Negative mg/dL (NEG) Urine Ketones (Stick) Negative mg/dL (NEG) Urine Blood Negative (NEG) Urine Nitrite Negative (NEG) Urine Bilirubin Negative (NEG) Urine Urobilinogen Dipstick 0.2 mg/dL (0.2 mg/dL) Urine Leukocyte Esterase Negative (NEG) Urine RBC 0 /HPF (0-2) Urine WBC 0 /HPF (0-4) Urine Squamous Epithelial Cells None /LPF Urine Bacteria 0 /HPF (0-FEW) Urine Opiates Screen Neg (NEG) Urine Methadone Screen Neg (NEG) Urine Barbiturates Neg (NEG) Urine Phencyclidine Screen Neg (NEG) Urine Amphetamine/Methamphetamine Neg (NEG) Urine Benzodiazepines Screen Neg (NEG) Urine Cocaine Screen Neg (NEG) Urine Cannabinoids Screen Neg (NEG) Urine Ethyl Alcohol Pos (NEG) SARS-CoV-2 Antigen (Rapid) Negative (NEGATIVE) Test 05/04/20 21:01 05/05/20 05:17 Troponin I Quantitative < 0.017 ng/mL (0.000-0.055) Sodium Level 135 mmol/L (136-145) Potassium Level 4.3 mmol/L (3.5-5.1) Chloride Level 100 mmol/L (98-107) Carbon Dioxide Level 26 mmol/L (21-32) Anion Gap 9 (6-14) Blood Urea Nitrogen 10 mg/dL (8-26) Creatinine 0.7 mg/dL (0.7-1.3) Estimated GFR (Cockcroft-Gault) 118.0 Glucose Level 88 mg/dL (70-99) Calcium Level 8.6 mg/dL (8.5-10.1) Assessment and Plan Assessmemt and Plan Problems Medical Problems: (1) Chest pain Status: Acute Comment Review of Relevant I have reviewed the following items fawad (where applicable) has been applied. Medications: Current Medications Medications (Trade) Dose Ordered Sig/Carly Route PRN Reason Start Time Stop Time Status Last Admin Dose Admin Aspirin (Shabbir Aspirin) 325 mg 1X ONCE PO 05/04/20 15:15 05/04/20 15:16 DC 05/04/20 15:15 Nitroglycerin (Nitrostat) 0.4 mg PRN Q5MIN PRN SL CHEST PAIN 05/04/20 15:30 05/04/20 15:36 Sodium Chloride 1,000 ml @ 1,000 mls/hr 1X ONCE IV 05/04/20 15:45 05/04/20 16:44 DC 05/04/20 15:59 Lorazepam (Ativan) 1 mg HS PO 05/04/20 21:00 05/04/20 21:09 Metoprolol Succinate (Toprol Xl) 50 mg BID PO 05/04/20 21:00 05/04/20 21:10 Famotidine (Pepcid) 20 mg QHS PO 05/04/20 21:00 05/04/20 21:09 Regadenoson (Lexiscan) 0.4 mg 1X ONCE IV 05/05/20 11:30 05/05/20 11:32 DC 05/05/20 12:09 Justifications for Admission Other Justification Unstable angina, hyponatremia MARAH DONOHUE MD May 05, 2020 13:50
--- NOTE | 2020-05-05 14:02 | NUR ---
SS following for discharge planning. SS reviewed pt chart and discussed with pt RN. Pt is from home and is currently on room air. Cardiology consulted. COVID19 negative. Pt having stress test. SS will continue to follow for discharge planning.
--- NOTE | 2020-05-05 14:30 | RAD ---
MR#: [id number] Date of Study: 05/05/2020 Ordering Physician: MARAH DONOHUE, Referring Physician: MAKI ADAMS Tech: Maria Alejandra Pineda RT (R) (N) APPROVED REPORT Test Type: Pharmacological Stress Nurse/Tech: Mita Sosa R.N. Test Indications: CP Cardiac History: Hypertension, Family history Medications: See Electronic Medical Record Medical History: See Electronic Medical Record Resting ECG: NSR Resting Heart Rate: 91 bpm Resting Blood Pressure: 134/81mmHg Pretest Chest Pain: No chest pain Nurse/Tech Notes S1S2, lungs sound clear Consent: The procedure was explained to the patient in lay terms. Informed consent was witnessed. Jalen eout was entered into [employer]. History and Stress Test performed by Mita Sosa R.N. Pharm. Details Pharmacologic stress testing was performed using 0.4mg per 5ml of regadenoson given intravenously ove r 7-10 seconds. Stress Symptoms Dyspnea POST EXERCISE Reason for Termination: Infusion complete Target HR: 141 Max HR: 123 bpm Max Blood Pressure: 134/67mmHg Blood Pressure response to exercise: Normal blood pressure response during stress. Chest Pain: No. Arrhythmia: No. ST Change: No. INTERPRETATION Stress EKG Conclusion: Baseline EKG showed sinus rhythm. No ischemic changes at peak stress. No arr hythmias. Imaging Protocol IMAGE PROTOCOL: Rest Tc-99m/stress Tc-99m 1 day Rest: Stress: Viability: Radiopharm.Tc99m CobseakudNu81w Sestamibi Dose10.9mCi 32mCi Duration 15min. 10min. Img Date 05/05/2020 05/05/2020 Inj-Img [id number]. 60min. Rest Admin Site:IV - Left AntecubitalAdministrator:BARTOLO Connell Stress Admin Site: IV - Left AntecubitalAdministrator: CHUN Jeff, ARRT (R)(N) STRESS DATA End Diast. Vol.130.0mlAv. Heart Hdwc347.0bpm End Syst. Vol.38.0mlCO Index BSA0.0L/min Myocardial Fhlf982.0gEject. Crlupvhs33.0% Stress Rates Pk. Fill Rate3.72EDV/secLVtime Pk. Fill 132.03msec Pk. Empty Rate3.24ESV/secLVtime Pk. Qtjay344.65msec 1/3 Pk. Fill1.89EDV/sec Stress Scores Regional WT0.00Summed WT5.00 Regional WM0.00Summed WM0.00 Study quality was good. Left Ventricular size was Normal at Rest and Stress. Lung uptake was . Left Ventricular ejection fraction is 68%. The rest and stress images show normal perfusion, normal contraction and thickening. LV Perf. Quant 17 Seg. SSS0.00 17 Seg. SRS7.00 17 Seg. SDS0.00 Stress Defect Extent (% LAD)0.00Rest Defect Extent (% LAD)0.00Rev. Defect Extent (% LAD)0.00 Stress Defect Extent (% LCX) 0.00Rest Defect Extent (% LCX)0.00Rev. Defect Extent (% LCX)0.00 Stress Defect Extent (% RCA)0.00Rest Defect Extent (% RCA)7.80Rev. Defect Extent (% RCA)0.00 Stress Defect Extent (% MARIA)0.00Rest Defect Extent (% MARIA)3.30Rev. Defect Extent (% MARIA)0.00 Conclusion 1. Regadenoson cardioisotope stress test did not show any evidence of ischemia or infarct. 2. Normal left ventricular systolic function with ejection fraction calculated at 68%. 3. Low risk for cardiac events. Signed by : Star Ruelas, Electronically Approved : 05/05/2020 14:29:21
[2020-05-05 14:54] VITALS: BP 139/91
[2020-05-05 15:15] VITALS: BP 139/91
[2020-05-05] MEDS: METOPROLOL SUCC 24HR ER 50 MG TAB.ER.24H. PO SCH (15:15)
--- NOTE | 2020-05-05 15:54 | CARD ---
MR#: [id number] Date of Study: 05/05/2020 Ordering Physician: JEY AREVALO, Referring Physician: JEY AREVALO, Tech: Janine Arriaga APPROVED REPORT EXAM: Two-dimensional and M-mode echocardiogram with Doppler and color Doppler. Other Information Quality : AverageHR: 110bpm Technically limited study due to Rapid heart Rate INDICATION Chest Pain RISK FACTORS Hypertension Hyperlipidemia 2D DIMENSIONS RVDd2.7 (2.9-3.5cm)Left Atrium(2D)2.6 (1.6-4.0cm) IVSd0.9 (0.7-1.1cm)Aortic Root(2D)3.5 (2.0-3.7cm) LVDd5.6 (3.9-5.9cm)LVOT Diameter2.1 (1.8-2.4cm) PWd0.8 (0.7-1.1cm)LVDs3.7 (2.5-4.0cm) FS (%) 33.9 %SV95.3 ml LVEF(%)62.1 (>50%) Aortic Valve AoV Peak Brian.131.9cm/sAoV VTI19.9cm AO Peak GR.7.0mmHgLVOT Peak Brian.102.7cm/s LVOT VTI 22.90cmAO Mean GR.4mmHg JOSE (VMAX)1.04as3ZXS (VTI)3.94cm2 Mitral Valve MV E Cumfpjdz51.7cm/sMV A Ispbmrew05.1cm/s MV E Mean Gr.2mmHgE/A Ratio0.7 TDI E/Lateral E'4.4E/Medial E'6.3 Pulmonary Valve PV Peak Rintbypb473.0cm/sPV Peak Grad.5mmHg Pulmonary Vein S1 Utylrhgr87.6cm/sD2 Iuytrupx52.2cm/s PVa [id number] LEFT VENTRICLE The left ventricle is normal size. There is normal left ventricular wall thickness. The left ventricu lar systolic function is normal. The Ejection Fraction is 55-60%. There is normal LV segmental wall m otion. Transmitral Doppler flow pattern is Grade I-abnormal relaxation pattern. RIGHT VENTRICLE The right ventricle is normal size. There is normal right ventricular wall thickness. The right ventr icular systolic function is normal. ATRIA The left atrium size is normal. The right atrium size is normal. The interatrial septum is intact wit h no evidence for an atrial septal defect or patent foramen ovale as noted on 2-D or Doppler imaging. AORTIC VALVE The aortic valve is thickened but opens well. Doppler and Color Flow revealed no significant aortic r egurgitation. There is no significant aortic valvular stenosis. Calculated aortic valve area is 4.34 cm2 with maximum pressure gradient of 8 mmHg and mean pressure gradient of 4 mmHg. MITRAL VALVE The mitral valve is normal in structure and function. There is no evidence of mitral valve prolapse. There is no mitral valve stenosis. Doppler and Color Flow revealed no mitral valve regurgitation note d. TRICUSPID VALVE The tricuspid valve is normal in structure and function. Doppler and Color Flow revealed no tricuspid valve regurgitation noted. There is no tricuspid valve stenosis. PULMONIC VALVE The pulmonic valve is not well visualized. Doppler and Color Flow revealed trace pulmonic valvular re gurgitation. GREAT VESSELS The aortic root is normal in size. The ascending aorta is normal in size. The IVC is normal in size a nd collapses >50% with inspiration. PERICARDIAL EFFUSION There is no evidence of significant pericardial effusion. Critical Notification Critical Value: No <Conclusion> The left ventricular systolic function is normal. The Ejection Fraction is 55-60%. There is normal LV segmental wall motion. Transmitral Doppler flow pattern is Grade I-abnormal relaxation pattern. There is no evidence of significant pericardial effusion. Signed by : Star Ruelas, Electronically Approved : 05/05/2020 15:53:30
[2020-05-05] MEDS ORDERED: ASPI-886 PO (16:26)
[2020-05-05] MEDS ORDERED: ATOR20TA58 PO (16:26)
--- NOTE | 2020-05-05 16:27 | DISCH ---
DISCHARGE INSTRUCTIONS Condition on Discharge Condition on Discharge: Stable Activity After Discharge Activity Instructions for Disc: No restrictions Driving Instructions after Dis: Do not drive today Diet after Discharge Diet after Discharge: Cardiac Contacting the DR. after DC Call your doctor for: If your condition worsens Follow-Up Follow up with: PCP within 1 week of discharge Follow Up With: md allergy immunology was needed MARAH DONOHUE MD May 05, 2020 16:27
--- NOTE | 2020-05-05 19:13 | NUR ---
Discharge Note: FRANKY MELO [place] Pt given discharge instructions and new prescription information. Pt stated the POST CLOSING SPECIALIST for cardiology stated he didn't need the cholestrol medication or the ASA but that she would prescribe the carafate. It was explained to him that the POST CLOSING SPECIALIST stated he would need the cholestrol medication and baby ASA due to his family history of heart disease and that to aid in the stomach issues when taking ASA to speak to the primary care physician regarding starting a new medication. Pt began cursing and became very upset. Stated "nevermind, I'm ready to leave". Pt given written discharge information and discharged. Discharge instructions and discharge home medications reviewed with Patient and a copy given. All questions have been answered and understanding verbalized.
[2020-05-05] MEDS ORDERED: ATORVASTATIN CALCIUM 20 MG TABLET PO SCH (21:00)
[2020-05-06] MEDS ORDERED: ASPIRIN ENTERIC COATED 81 MG TABLET.DR. PO SCH (08:00)
--- NOTE | 2020-05-07 08:46 | EKG ---
[facility] [address] [place] [address] Test Date: 2020-05-04 Test Time: 15:00:43 Pat Name: SARANYA MELO Department: Room: Gender: Bilingual Medical Receptionist: : 1965 Requested By: KATHY PAZ Order Number: [id number] Reading MD: Measurements Intervals [place] Rate: 95 P: 34 [place]: 190 QRS: 29 QRSD: 92 T: 28 QT: 344 QTc: 435 Interpretive Statements SINUS RHYTHM CONSIDER RIGHT VENTRICULAR HYPERTROPHY POSSIBLY ABNORMAL ECG RI6.02 No previous ECG available for comparison
== END 2020-05-05 19:00 | disposition home or self-care (01) | DRG 313 ==
LOC: ER 14:51 → 2 NORTH 16:20 → OBSVTOIN 05-05 13:50
PROVIDERS: ADMIT Family Medicine; ATTEND Family Medicine
DX: R07.89 Other chest pain (principal); E87.1 Hypo-osmolality and hyponatremia; I20.0 Unstable angina; E78.00 Pure hypercholesterolemia, unspecified; E78.5 Hyperlipidemia, unspecified; F41.9 Anxiety disorder, unspecified; I10 Essential (primary) hypertension; M19.90 Unspecified osteoarthritis, unspecified site; K21.9 Gastro-esophageal reflux disease without esophagitis; Z82.49 Family history of ischemic heart disease and other diseases of the circulatory system; Z79.899 Other long term (current) drug therapy
CPT/HCPCS: 36415; 70450; 71045; 78452; 80048; 80053; 80061; 80307; 81001; 83690; 83880; 84443; 84484; 85025; 85379; 85610; 87426; 93005; 93017; 93306; A9500; G0378; G0379; J2785; J7030; U0003

== ENCOUNTER 2020-06-07 15:40 | Emergency (ER) | payer BC ==
[~2020-06-07] VITALS: Ht 180.3 cm; Wt 85.5 kg
[~2020-06-07 15:40] MED LIST: ASPI-886 PO; ATOR20TA58 PO; FAMO10TA26 PO; LISI-334 PO; LORA-434 PO; METO50TA4 PO
[2020-06-07 15:47] VITALS: BP 146/90
--- NOTE | 2020-06-07 15:54 | PHYS DOC ---
Past Medical History Past Medical History: High Cholesterol, Hypertension Past Surgical History: Other Additional Past Surgical Histo: hernia Smoking Status: Never Smoker Alcohol Use: Occasionally General Adult EDM: Chief Complaint: ANXIETY/PANIC ATTACK HPI: HPI: Patient is a 54 year old male who arrives via EMS with a chief complaint of shortness of breath and anxiety. Had COVID-19 about 3 weeks ago and still has a mild cough. Patient's mom of Covid this week and has had increased anxiety and alcohol intake over that timeframe. Patient has shortness of breath is worse with exertion and anxiety. Patient has some mild chest tightness as well. Patient is currently not having any fever. Patient denies vomiting or diarrhea. Patient has had increased fatigue and anxiety. Review of Systems: Review of Systems: Constitutional: Denies fever or chills. [] Eyes: Denies change in visual acuity. [] HENT: Denies nasal congestion or sore throat. [] Respiratory: Complains of mild cough and shortness of breath Cardiovascular: Complains of chest tightness but no edema GI: Denies abdominal pain, nausea, vomiting, bloody stools or diarrhea. [] : Denies dysuria. [] Musculoskeletal: Denies back pain or joint pain. [] Integument: Denies rash. [] Neurologic: Denies headache, focal weakness or sensory changes. [] Endocrine: Denies polyuria or polydipsia. [] Lymphatic: Denies swollen glands. [] Psychiatric: Denies depression or anxiety. [] Heart Score: HEART Score for Chest Pain: HEART Score for Chest Pain Response (Comments) Value History Slighlty/Non-Suspicious 0 Age >45 - < 65 1 Risk Factors 1 or 2 Risk Factors 1 Troponin < Normal Limit 0 Total 2 Risk Factors: Risk Factors: DM, Current or recent (<one month) smoker, HTN, HLP, family history of CAD, obesity. Risk Scores: Score 0 - 3: 2.5% MACE over next 6 weeks - Discharge Home Score 4 - 6: 20.3% MACE over next 6 weeks - Admit for Clinical Observation Score 7 - 10: 72.7% MACE over next 6 weeks - Early Invasive Strategies Allergies: Allergies: Allergies Coded Allergies Type Severity Reaction Last Updated Verified No Known Drug Allergies 05/04/20 No Physical Exam: PE: Constitutional: Well developed, well nourished, no acute distress, non-toxic appearance. [] HENT: Normocephalic, atraumatic, bilateral external ears normal, oropharynx moist, no oral exudates, nose normal. [] Eyes: PERRLA, EOMI, conjunctiva normal, no discharge. [] Neck: Normal range of motion, no tenderness, supple, no stridor. [] Cardiovascular:Heart rate regular rhythm, no murmur [] Lungs & Thorax: Bilateral breath sounds clear to auscultation [] Abdomen: Bowel sounds normal, soft, no tenderness, no masses, no pulsatile masses. [] Skin: Warm, dry, no erythema, no rash. [] Back: No tenderness, no CVA tenderness. [] Extremities: No tenderness, no cyanosis, no clubbing, ROM intact, no edema. [] Neurologic: Alert and oriented X 3, normal motor function, normal sensory function, no focal deficits noted. [] Psychologic: Anxious Current Patient Data: Labs: Laboratory Tests Test 06/07/20 16:01 06/07/20 16:38 White Blood Count 5.6 x10^3/uL Red Blood Count 4.58 x10^6/uL Hemoglobin 15.3 g/dL Hematocrit 43.9 % Mean Corpuscular Volume 96 fL Mean Corpuscular Hemoglobin 33 pg Mean Corpuscular Hemoglobin Concent 35 g/dL Red Cell Distribution Width 13.2 % Platelet Count 188 x10^3/uL Neutrophils (%) (Auto) 68 % Lymphocytes (%) (Auto) 20 % Monocytes (%) (Auto) 11 % Eosinophils (%) (Auto) 1 % Basophils (%) (Auto) 1 % Neutrophils # (Auto) 3.8 x10^3/uL Lymphocytes # (Auto) 1.1 x10^3/uL Monocytes # (Auto) 0.6 x10^3/uL Eosinophils # (Auto) 0.0 x10^3/uL Basophils # (Auto) 0.1 x10^3/uL D-Dimer (Cris) 0.38 ug/mlFEU Sodium Level 134 mmol/L Potassium Level 4.2 mmol/L Chloride Level 97 mmol/L Carbon Dioxide Level 25 mmol/L Anion Gap 12 Blood Urea Nitrogen 5 mg/dL Creatinine 0.6 mg/dL Estimated GFR (Cockcroft-Gault) 140.9 BUN/Creatinine Ratio 8 Glucose Level 98 mg/dL Calcium Level 9.4 mg/dL Magnesium Level 2.3 mg/dL Total Bilirubin 0.6 mg/dL Aspartate Amino Transf (AST/SGOT) 61 U/L Alanine Aminotransferase (ALT/SGPT) 90 U/L Alkaline Phosphatase 65 U/L Troponin I Quantitative < 0.017 ng/mL DI-Qzw-L-Type Natriuretic Peptide 63 pg/mL Total Protein 7.3 g/dL Albumin 4.3 g/dL Albumin/Globulin Ratio 1.4 Lipase 179 U/L Ethyl Alcohol Level 210 mg/dL Urine Collection Type Unknown Urine Color Yellow Urine Clarity Clear Urine pH 7.0 Urine Specific Chauncey <=1.005 Urine Protein Negative mg/dL Urine Glucose (UA) Negative mg/dL Urine Ketones (Stick) Negative mg/dL Urine Blood Negative Urine Nitrite Negative Urine Bilirubin Negative Urine Urobilinogen Dipstick 0.2 mg/dL Urine Leukocyte Esterase Negative Urine RBC 0 /HPF Urine WBC 0 /HPF Urine Bacteria 0 /HPF Current Medications Medications (Trade) Dose Ordered Sig/Carly Route PRN Reason Start Time Stop Time Status Last Admin Dose Admin Sodium Chloride 1,000 ml @ 1,000 mls/hr 1X ONCE IV 06/07/20 16:00 06/07/20 16:59 DC 06/07/20 16:17 Lorazepam (Ativan Inj) 1 mg 1X ONCE IVP 06/07/20 16:00 06/07/20 16:01 DC 06/07/20 16:17 Vital Signs: Vital Signs Date Time Temp Pulse Resp B/P (MAP) Pulse Ox O2 Delivery O2 Flow Rate FiO2 06/07/20 15:47 99.1 92 20 146/90 (108) 100 Nasal Cannula 99.1 EKG: EKG: EKG interpreted by me normal sinus rhythm with rate 91 normal axis normal intervals normal ST segments [] Radiology/Procedures: Radiology/Procedures: [][facility] [address] [place], [place] [id number] IMAGING REPORT Signed PATIENT: SARANYA MELO ACCOUNT: [id number] : 1965 LOCATION: ER AGE: 54 SEX: M EXAM STATUS: PRE ER ORD. PHYSICIAN: ROMEO FLOR MD REASON: soa, recent covid 20 PROCEDURE: PORTABLE CHEST 1V Examination: XR CHEST 1V History: Reason: soa, recent covid 20 / Comparison/Correlation: None Findings: Portable frontal view chest was obtained. Heart size and pulmonary vas cular pattern are normal. No infiltrate or pleural effusion. No pneumothorax. Bony structures are unremarkable. Impression: No active disease. Electronically signed by: Sunil Somers MD (06/07/2020 4:46 PM) [id number] DICTATED and SIGNED BY: SUNIL SOMERS MD DATE: 06/07/20 [id number] 0 Course & Med Decision Making: Course & Med Decision Making Pertinent Labs and Imaging studies reviewed. (See chart for details) [] 54-year-old male arrives via EMS with a chief complaint of dyspnea. Patient recently had COVID-19 therefore he underwent an evaluation to rule out pneumonia, pneumothorax and pulmonary embolism. Patient's D-dimer is negative and troponin is negative with unremarkable EKG. Clinically doubt acute coronary syndrome or pulmonary Theo or thoracic aortic dissection. Patient has no evidence of pneumonia on his chest x-ray. Patient's alcohol level is 210, I think his main problem is stress and anxiety and alcohol use that is likely correlated to the of his mother recently. Patient clinically improved on reassessment. Patient be stable for discharge outpatient follow-up. Ladonna Disclaimer: Ladonna Disclaimer: This electronic medical record was generated, in whole or in part, using a voice recognition dictation system. Departure Departure Impression: Primary Impression: Anxiety Additional Impressions: Dyspnea Alcohol intoxication Disposition: 01 DC HOME SELF CARE/HOMELESS Condition: STABLE Referrals: TATI RODRÍGUEZ (PCP) 2-3 days Patient Instructions: Alcohol Intoxication, Shortness of Breath Additional Instructions: EMERGENCY DEPARTMENT GENERAL DISCHARGE INSTRUCTIONS THANK YOU for coming to [facility] Emergency Department (ED) today and trusting us with your care. We trust that you had a positive experience in our Emergency Department. If you wish to speak to the department Management you can contact the transit department clerk at . YOUR FOLLOW UP INSTRUCTIONS ARE FOLLOWS: Do you have a private doctor? If you do not have a private doctor, please ask for a resource list of physicians or clinics that may be able to assist you with follow up care. The Emergency Physician has interpreted your x-rays. The X-ray specialist will also review them. If there is a change in the findings you will be notified in 48 hours when at all possible. A lab test or lab culture may have been done, your results will be reviewed and you will be notified if you need a change in treatment. ADDITIONAL INSTRUCTIONS AND INFORMATION Your care today has been supervised by a physician who is specially trained in emergency care. Many problems require more than one evaluation for a complete diagnosis and treatment. We recommend that you schedule your follow up appointment as recommended to ensure complete treatment of your illness or injury. If you are unable to obtain follow up care and continue to have a problem, or if your condition worsens we recommend that you return to the ED. We are not able to safely determine your condition over the phone nor are we able to give sound medical advice over the phone. For these safety reasons, if you call for medical advice we will ask you to come to the ED for further evaluation If you have any questions regarding these discharge instructions please call the ED at . SAFETY INFORMATION In the interest of safety, wellness, and injury prevention; we encourage you to wear your seatbelt, if you smoke; quit smoking, and we encourage your family to use protective helmet for bicycling and other sporting events that present an increased risk for head injury. IF YOUR SYMPTOMS WORSEN OR NEW SYMPTOMS DEVELOP, OR YOU HAVE CONCERNS ABOUT YOUR CONDITION; OR IF YOUR CONDITION WORSENS WHILE YOU ARE WAITING FOR YOUR FOLLOW UP APPOINTMENT; EITHER CONTACT YOUR PRIMARY CARE DOCTOR, THE PHYSICIAN WHOSE NAME AND NUMBER YOU WERE GIVEN, OR RETURN TO THE ED IMMEDIATELY. Scripts Lorazepam (ATIVAN) 1 Mg Tablet 1 MG PO TID for anxiety for 2 Days, #6 TAB Prov: ROMEO FLOR MD 06/07/20 ROMEO FLOR MD Jun 07, 2020 15:54
[2020-06-07] MEDS ORDERED: IV NORMAL SALINE 1000ML BAG 1,000 ML IV ONE (16:00)
--- NOTE | 2020-06-07 16:19 | EKG ---
[facility] [address] [place] [address] Test Date: 2020-06-07 Test Time: 16:04:50 Pat Name: SARANYA MELO Department: Room: Gender: Operations Director: JAYLYN : 1965 Requested By: ROMEO FLOR Order Number: [id number] Reading MD: Measurements Intervals [place] Rate: 91 P: 35 UT: 180 QRS: 38 QRSD: 94 T: 37 QT: 360 QTc: 444 Interpretive Statements SINUS RHYTHM NORMAL ECG RI6.02 No previous ECG available for comparison
[2020-06-07 16:30] LABS: BASO # 0.1 x10^3/uL (0.0-0.2); BASO % 1 % (0-3); EOS % 1 % (0-3); HEMATOCRIT 43.9 % (39.0-53.0); HEMOGLOBIN 15.3 g/dL (13.0-17.5); LYMPH # 1.1 x10^3/uL (1.0-4.8); LYMPH % 20 % (24-48); MEAN CORPUSCULAR HEMOGLOBIN 33 pg (25-35); MEAN CORPUSCULAR HGB CONC 35 g/dL (31-37); MEAN CORPUSCULAR VOLUME 96 fL (79-100); MONO # 0.6 x10^3/uL (0.0-1.1); MONO % 11 % (0-9); NEUT # 3.8 x10^3/uL (1.8-7.7); NEUT % 68 % (31-73); PLATELET COUNT 188 x10^3/uL (140-400); RED BLOOD COUNT 4.58 x10^6/uL (4.30-5.70); RED CELL DISTRIBUTION WIDTH 13.2 % (11.5-14.5); WHITE BLOOD COUNT 5.6 x10^3/uL (4.0-11.0)
[2020-06-07 16:43] LABS: CALCIUM 9.4 mg/dL (8.5-10.1); CREATININE 0.6 mg/dL (0.7-1.3); GFR 140.9; POTASSIUM 4.2 mmol/L (3.5-5.1)
[2020-06-07 16:44] LABS: BILIRUBIN,URINE NEGATIVE (NEG); CLARITY,URINE CLEAR; COLOR,URINE YELLOW; NITRITE,URINE NEGATIVE (NEG); PROTEIN,URINE NEGATIVE (NEG-TRACE); UROBILINOGEN,URINE 0.2 mg/dL (0.2 mg/dL)
--- NOTE | 2020-06-07 16:49 | RAD ---
Examination: XR CHEST 1V History: Reason: soa, recent covid 20 / Comparison/Correlation: None Findings: Portable frontal view chest was obtained. Heart size and pulmonary vascular pattern are nor mal. No infiltrate or pleural effusion. No pneumothorax. Bony structures are unremarkable. Impression: No active disease. Electronically signed by: Sunil Gillis MD (06/07/2020 4:46 PM) [id number]
[2020-06-07 16:53] LABS: ALBUMIN 4.3 g/dL (3.4-5.0); ALBUMIN/GLOBULIN RATIO 1.4 (1.0-1.7); MAGNESIUM 2.3 mg/dL (1.8-2.4); TOTAL BILIRUBIN 0.6 mg/dL (0.2-1.0); TOTAL PROTEIN 7.3 g/dL (6.4-8.2)
[2020-06-07 16:57] LABS: BACTERIA,URINE 0 /HPF (0-FEW); RBC,URINE 0 /HPF (0-2); WBC,URINE 0 /HPF (0-4)
[2020-06-07] MEDS ORDERED: LORA-434 PO (17:27)
== END 2020-06-07 17:56 | disposition home or self-care (01) ==
LOC: ER 15:40
DX: F41.9 Anxiety disorder, unspecified (principal); R06.02 Shortness of breath; F10.129 Alcohol abuse with intoxication, unspecified; Y90.7 Blood alcohol level of 200-239 mg/100 ml; U07.1 COVID-19; E78.00 Pure hypercholesterolemia, unspecified; I10 Essential (primary) hypertension
CPT/HCPCS: 36415; 71045; 80053; 81001; 83690; 83735; 83880; 84484; 85025; 85379; 93005; 96361; 96374; 99285; G0480; J2060; J7030